=== PATIENT | male | born 1955 | race Hispanic/Latino ===

== ENCOUNTER 2021-06-08 17:13 | Emergency (ER) | payer MEDICARE ==
[~2021-06-08] VITALS: Ht 167.6 cm; Wt 87.5 kg
[2021-06-08] MEDS ORDERED: KETOROLAC TROMETHAMINE 30 MG/ML VIAL IV STA (19:06)
[2021-06-08] MEDS ORDERED: CYCLOBENZAPRINE HCL 10 MG TAB PO ONE (19:15)
[2021-06-08] MEDS ORDERED: MEDROL4 M2 PO (20:15)
[2021-06-08] MEDS ORDERED: CYCLOBENZAPRINE10 MG PO (20:16)
[2021-06-08 20:27] VITALS: BP 129/72
== END 2021-06-08 20:27 | disposition home or self-care (01) ==
LOC: FSED 17:40
DX: M54.12 Radiculopathy, cervical region (principal); M62.838 Other muscle spasm; E78.5 Hyperlipidemia, unspecified; N40.0 Benign prostatic hyperplasia without lower urinary tract symptoms; R94.31 Abnormal electrocardiogram [ECG] [EKG]
CPT/HCPCS: 70450; 72125; 80048; 80053; 81003; 82553; 84484; 85025; 93005; 99284; J1885